=== PATIENT | female | born 1955 | race Two or more races ===

== ENCOUNTER → 2016-04-11 | Outpatient (CLI) | payer OTHER | LOC: RAD 07:47 | PROVIDERS: ATTEND Specialist | DX: R10.9 Unspecified abdominal pain (principal) | CPT/HCPCS: 78227; A9537; Q9969; J2805 ==

== ENCOUNTER 2016-04-19 12:41 | Outpatient (CLI) | payer SELFPAY ==
[~2016-04-19 12:41] MED LIST: FERRIC CARBOXYMALTOSE 750 MG in NORMAL SALINE 250 ML IV PRN; NORMAL SALINE 250 ML IV PRN
[2016-04-19 13:10] VITALS: BP 123/45
== END 2016-04-19 13:43 | disposition home or self-care (01) ==
LOC: II 12:41 → 5TH 13:03 → II 13:43
PROVIDERS: ATTEND Specialist
PROC: 3E033GC Introduction of Other Therapeutic Substance into Peripheral Vein, Percutaneous Approach (ICD-10-PCS; principal; 2016-04-19)
DX: C18.2 Malignant neoplasm of ascending colon (principal); Z51.11 Encounter for antineoplastic chemotherapy
CPT/HCPCS: 96365; J7050; J1439; 96367

== ENCOUNTER 2016-04-20 05:19 | Inpatient (IN) | payer OTHER ==
[2016-04-19 12:16] LABS: HEMATOCRIT 32.4 % (36.0-47.0); HEMOGLOBIN 9.7 g/dL (12.0-15.5); HGB HCT DIFFERENCE -3.3; MEAN CORPUSCULAR HEMOGLOBIN 21.1 pg (27.0-33.4); MEAN CORPUSCULAR HGB CONC 30.1 g/dL (32.0-36.0); MEAN CORPUSCULAR VOLUME 70 fl (80-97); RED BLOOD COUNT 4.61 10^6/uL (3.72-5.28); RED CELL DISTRIBUTION WIDTH 20.8 % (11.5-14.0); WHITE BLOOD COUNT 5.4 10^3/uL (4.0-10.5)
[~2016-04-20 05:19] MED LIST changes: +AMPICILLIN SODIUM/SULBACTAM NA 3 GM in NORMAL SALINE 100 ML IV PRN; -FERRIC CARBOXYMALTOSE 750 MG in NORMAL SALINE 250 ML IV PRN; +LACTATED RINGERS 1000 ML IV PRN; +LIDOCAINE 0.5% INJ-PF (5 MG/ML) 50 ML SDV SUBCUT PRN; -NORMAL SALINE 250 ML IV PRN
[2016-04-20] MEDS ORDERED: BUPIVACAINE HCL 0.25 % INJ/PF (2.5 MG/1 ML) 30 ML VIAL ONE (06:44)
[2016-04-20] MEDS ORDERED: BUPIVACAINE INJ/PF LIPOSOME/PF 266 MG/20 ML SDV ONE (06:44)
[2016-04-20] MEDS ORDERED: FENTANYL CITRATE INJ/PF 250 MCG/5 ML AMPULE ONE ×2 (07:10→10:33)
[2016-04-20] MEDS ORDERED: ACETAMINOPHEN 100 ML IV ONE (07:11)
[2016-04-20] MEDS ORDERED: MIDAZOLAM 2 MG/2 ML INJ ONE (07:11)
[2016-04-20] MEDS ORDERED: PROPOFOL INJ 200 MG/20 ML VIAL IV ONE (07:11)
[2016-04-20] MEDS ORDERED: HYDROMORPHONE HCL INJ/PF 2 MG/ML AMPULE ONE ×2 (07:11→10:33)
[2016-04-20] MEDS ORDERED: DEXMEDETOMIDINE INJ 80 MCG/20 ML VIAL IV ONE (07:11)
[2016-04-20] MEDS ORDERED: OXYCODONE-ACETAMINOPHEN 5-325 MG TABLET NG PRN ×2 (11:58)
[2016-04-20] MEDS ORDERED: DIPHENHYDRAMINE HCL 50 MG/ML VIAL IV PRN (11:58)
[2016-04-20] MEDS ORDERED: PROMETHAZINE HCL INJ 25 MG/1 ML VIAL IV PRN ×2 (11:58)
[2016-04-20] MEDS ORDERED: FENTANYL CITRATE INJ/PF 100 MCG/2 ML AMPUL IV PRN ×3 (11:58)
[2016-04-20] MEDS ORDERED: MEPERIDINE HCL/PF INJ 25 MG/1 ML DISP.SYRIN IV PRN (11:58)
[2016-04-20] MEDS ORDERED: MORPHINE SULFATE 10 MG/ML INJ IV PRN (11:58)
[2016-04-20] MEDS ORDERED: DEXTROSE 5%-LACTATED RINGERS 1,000 ML IV PRN (12:16)
[2016-04-20] MEDS ORDERED: ONDANSETRON HCL INJ/PF 4 MG/2 ML SDV IV PRN (12:16)
[2016-04-20] MEDS ORDERED: PHARMACY COMMUNICATION ORDER MC NR (12:30)
[2016-04-20] MEDS: FENTANYL CITRATE INJ/PF 100 MCG/2 ML AMPUL ONE ×3 (12:37→13:50)
--- NOTE | 2016-04-20 12:39 | Operative Report ---
Operative Report DATE OF SURGERY: 04/20/16 PREOPERATIVE DIAGNOSIS: 1. Right colon tumor, adenocarcinoma by biopsy. 2. Biliary dyskinesia. 3. Right adnexal mass POSTOPERATIVE DIAGNOSIS: Same with intrauterine abdominal adhesions, specifically FitzhughCurtis syndrome. Right ovarian cyst OPERATION: 1. Laparoscopic lysis of adhesions. 2. Right hemicolectomy, laparoscopic. 3. control of intra-abdominal bleeding. 4. Laparoscopic cholecystectomy SURGEON: EDYTA CHU CHILD WELFARE CASEWORKER: RAMY ALEJO ANESTHESIA: GA TISSUE REMOVED OR ALTERED: Right colon with mesentery; gallbladder COMPLICATIONS: None ESTIMATED BLOOD LOSS: 750 mL INTRAOPERATIVE FINDINGS: See below PROCEDURE: Patient was seen in the preoperative holding area where she was counseled on the planned procedure, laparoscopic, possible open right colectomy, with cholecystectomy. She agreed to the planned procedure as discussed. The patient taken to the operating room and general anesthesia was induced. The abdomen was exposed, arms tucked to the side and legs in the supine position. The abdomen was exposed prepped and draped in a sterile fashion with Coteuyjy-rklcykpx-ggmjto prep. Set up for laparoscopic right hemicolectomy. We approached the patient through a left upper quadrant stab wound with a knife , Veress needle inserted the peritoneal cavity, pneumoperitoneum was established. Veress needle was removed, 5 mm ports inserted and a 5 mm flexible scope was inserted. Under direct visualization 3 additional millimeter ports were placed one in the left lower quadrant, one the umbilicus and one in the midline suprapubic area. Visualization of the peritoneal cavity revealed a normal-appearing liver, and no evidence of carcinomatosis. There were adhesions between the right lobe of the liver and the undersurface of the right hemidiaphragm consistent with [place] syndrome. We as the patient in Trendelenburg position tilted the left, and performed adhesio lysis between the greater omentum and the right colon. This was done with your device. The findings are significant now for a large cecal tumor. The terminal ileum laparoscopically appeared normal. Once the right mesial colon was exposed, we opened it up with the energy device, and developed our plane in the retroperitoneum taking the level of dissection all the way to the duodenum and anterior to the duodenum. We also took the level dissection again in the retroperitoneum laterally. Graspers were repositioned, and an additional port was placed in the right lower quadrant. We now mobilized the ileocolic attachments to the lateral pelvic wall. Of note during the retroperitoneal dissection earlier, we visualized the right ureter and kept it out of harm's way. Attachments between the appendix and the lateral pelvic wall were taken down. We now opened up the white line of Toldt and took it up cephalad approximately half way to the hepatic flexure. There was a redundancy of the omentum in this area so we now approached the transverse colon. We opened up the gastrocolic omentum, and began taking the omentum off of the more proximal end of the transverse colon. The omental apron was divided to assist in this maneuver. We took down the hepatic flexure uneventfully all under direct, excellent visualization. We now had the right colon free laterally and superiorly. We went back up under the right mesial colon and continued the retroperitoneal dissection carefully again with great visualization and no bleeding and eventually had the entire colon freed up. We checked mobilization of the terminal ileum and a few further peritoneal attachments were opened up so as to mobilize terminal ileum. Her breath we didn 't effect inspect the pelvis on 2 occasions and appreciated the right adnexal mass which was a cyst involving the ovary, likely hemorrhagic. At this point we felt we were prepared to exteriorize the colon. Ports removed, and a midline incision was made from the supraumbilical port site cephalad. Incision was made approximately 11 cm in length, with fascia divided with electrocautery. The GelPort was put into position he now were able to exteriorize right colon. It came out nicely. We found suitable sites to divide both the terminal ileum and the transverse colon. The terminal ileum was divided approximately 8 cm proximal to the ileocecal valve and this was affected with the 55 RIVERA stapler, blue load. The transverse colon was divided just to right of the branch points of the middle colic vessels. The colon was divided with a second firing of the of the RIVERA stapler. We now scored the right meso colon for a high ideation of the vascular pedicles. Vascular Pedicles were taken between clamps and 0 Vicryl ties. During this maneuver , one of the pedicles likely the middle colic retracted into the cavity. The specimen was passed off the table, and we used hand-held pressure to stabilize the bleeding as a result. We did lose approximately 500 mL rapidly exposure anesthesia caught up using crystalloid. We utilized retractors for optimizing exposure and got some additional help in the operating room. The clamps placed on the proximal end of the pedicles were tied off with the 0 Vicryl sutures. I was now able to gain control the bleeding by placing a right angle clamp on a vein possibly the superior mesenteric vein, being careful not to occlude the vein. I now used a 4-0 Prolene suture to oversew the control bleeding site. The clamp was released and hemostasis again achieved. We reassessed the situation and found the patient to be stable again after a transient drop in blood pressure, which was treated with the crystalloid as mentioned above. The previously secured pedicles were felt in good condition. We proceeded with the operation. We brought the terminal ileum adjacent to the dissected transverse colon and effected our ilio transverse colonic anastomosis using combination of RIVERA 55 teresita and TA 60 stapler. We were careful to ensure that there was no rotation of the terminal ileum. The small bowel following the anastomosis was aligned to the right of the anastomosis. Placed to turn to the peritoneal cavity by placing a On the gel port. We checked for any mechanical bleeding and there was none. The viability of the terminal ileum and transverse colon were in excellent condition. There was never any question about the vascular status of the bowel lens during the anastomosis. At this point since the patient was stable and we proceeded with cholecystectomy. We changed the position of our graspers and scope, took down the adhesions over the liver with electrocautery and huyen. Grasper placed on the gallbladder fundus and infundibulum. The neck of the gallbladder was dissected out. The anatomy here was classic. Cystic artery and cystic duct were in their usual location were dissected out, photographed. Cystic duct was clipped twice proximally was distally divided. The cystic artery was similarly clipped twice proximally once distally and divided. The gallbladder was removed from the liver bed with hook cautery dissection and brought out of the patient through the GelPort. We leveled the patient out and checked for bleeding and there was none. We reinspected the anastomosis and it was in good condition. All ports removed, midline wound closed with 2 double-stranded #1 PDS suture, all incisions closed with 3-0 Vicryl, and teresita. 40 mL of dilute Exparel was injected into the subcutaneous tissues. Postop procedure was extubated and taken recovery in stable condition. The physician sound assistant, Ms. Alejo, provided assistance during this case by: Assisting and port insertion, retracting tissue, instillation of local anesthesia and closure of skin incisions.
[2016-04-20] MEDS ORDERED: PROMETHAZINE HCL INJ 25 MG/1 ML VIAL ONE (13:59)
[2016-04-20] MEDS ORDERED: NEOSTIGMINE METHYLSULFATE 10 MG/10 ML VIAL ONE (14:28)
[2016-04-20] MEDS ORDERED: LIDOCAINE 2% INJ-PF (20 MG/ML) 10 ML AMPUL ONE (14:28)
[2016-04-20] MEDS ORDERED: ROCURONIUM BROMIDE INJ 50 MG/5 ML VIAL IV ONE (14:28)
[2016-04-20] MEDS ORDERED: DEXAMETHASONE SOD PHOSPHATE INJ 4 MG/1 ML VIAL ONE (14:28)
[2016-04-20] MEDS ORDERED: GLYCOPYRROLATE INJ 0.4 MG/2 ML VIAL ONE (14:28)
[2016-04-20] MEDS ORDERED: PHENYLEPHRINE HCL INJ/PF 10 MG/1 ML SDV ONE (14:28)
[2016-04-20] MEDS ORDERED: ONDANSETRON HCL INJ/PF 4 MG/2 ML SDV ONE (14:28)
[2016-04-20] MEDS ORDERED: SUCCINYLCHOLINE CHLORIDE INJ 200 MG/10 ML VIAL ONE (14:28)
[2016-04-20] MEDS: MORPHINE SULFATE 10 MG/ML INJ IV PRN ×2 (16:51→21:10)
[2016-04-20] MEDS: AMPICILLIN SODIUM/SULBACTAM NA 3 GM in NORMAL SALINE 100 ML IV SCH ×2 (17:30→21:11)
[2016-04-20] MEDS: DEXTROSE 5%-LACTATED RINGERS 1,000 ML IV PRN (21:15)
[2016-04-21] MEDS: MORPHINE SULFATE 10 MG/ML INJ IV PRN ×5 (02:30→20:46)
[2016-04-21] MEDS: AMPICILLIN SODIUM/SULBACTAM NA 3 GM in NORMAL SALINE 100 ML IV SCH ×3 (05:23→21:14)
[2016-04-21] MEDS: DOCUSATE SODIUM 100 MG CAPSULE PO SCH ×2 (09:26→17:05)
[2016-04-22] MEDS: MORPHINE SULFATE 10 MG/ML INJ IV PRN ×6 (00:43→22:10)
[2016-04-22] MEDS: AMPICILLIN SODIUM/SULBACTAM NA 3 GM in NORMAL SALINE 100 ML IV SCH ×3 (05:43→21:59)
--- NOTE | 2016-04-22 09:29 | PROGRESS NOTE E ---
Progress Note NAME: KARLEY DRUMMOND : 1955 AGE: 60Y DATE: 04/22/2016 ROOM: 533 SUBJECTIVE: Patient has tolerated ice chips; she is voiding; no GI function yet. She does not have any nausea. OBJECTIVE: VITAL SIGNS: Stable; T-max 99.2. GENERAL: Patient looks good, healthy, and in no distress. ABDOMEN: Soft. Operative incision covered with original dressing. There is no abdominal distention, no tympany. Minimal tenderness. IMPRESSION: POSTOPERATIVE DAY 2, STATUS POST RIGHT HEMICOLECTOMY FOR A LARGE CECAL TUMOR. PLAN: Patient doing well, await resolution of ileus; will start clear liquids and advance slowly. Anticipate discharge in the next 24 to 48 hours. DICTATING PHYSICIAN: EDYTA BONILLA M.D. [id number] PHY#: [id number] ID: [id number] JOB#: [id number] ACCT: [id number] cc: >
[2016-04-22] MEDS: DOCUSATE SODIUM 100 MG CAPSULE PO SCH ×2 (09:40→17:31)
[2016-04-22] MEDS: DEXTROSE 5%-LACTATED RINGERS 1,000 ML IV PRN ×2 (11:47→22:43)
[2016-04-23] MEDS: MORPHINE SULFATE 10 MG/ML INJ IV PRN ×5 (02:15→20:34)
[2016-04-23] MEDS: AMPICILLIN SODIUM/SULBACTAM NA 3 GM in NORMAL SALINE 100 ML IV SCH ×3 (05:38→22:36)
--- NOTE | 2016-04-23 08:09 | PDOC PROGRESS REPORT ---
Subjective Progress Note for:: 04/23/16 Subjective:: Think she may have over done it yesterday. Tolerated liquids. No flatus. Voiding. Pain reasonably well controlled. Physical Exam Vital Signs: Temp Pulse Resp BP Pulse Ox 98.6 F 96 17 129/70 H 94 04/22/16 23:33 04/22/16 23:33 04/22/16 23:33 04/22/16 23:33 04/22/16 23:33 Intake & Output 04/22/16 04/23/16 04/24/16 06:59 06:59 06:59 Intake Total 3100 3689 Output Total 3600 3600 Balance -500 89 Weight 74.2 kg 74.2 kg General appearance: PRESENT: no acute distress GI/Abdominal exam: PRESENT: other - Abdomen not distended. Bowel sounds hypoactive. [place] intact on all incisions Results Laboratory Results: 04/19/16 11:09 Assessment & Plan - Diagnosis (1) Carcinoma of cecum Is this a current diagnosis for this admission?: YesPlan: 1. Patient is now 3 days postoperative right hemicolectomy and cholecystectomy. He is doing reasonably well, tolerating clear liquid diet, voiding, and ambulating. No flatus. No evidence of postoperative complications. Plan to keep on clear liquids today, manage pain accordingly; anticipate discharge home the next 24 hours. 2. Regarding iron deficiency anemia, we'll check CBC this morning. Patient may require another iron infusion. Currently she is asymptomatic. 3. Final path report came back showing poorly differentiated adenocarcinoma of the colon,T4a, with 10 out of 22 lymph nodes positive for metastatic disease, N2b. The gallbladder was unremarkable. I discussed the above with the patient. I explained her she will require adjuvant chemotherapy. Dr. Espinoza will see the patient this weekend and discuss management strategies with her. She will need an Dqncrw-j-Ehzn catheter and I mentioned that to the patient as well. 4. Dr. Lowry is personal security specialist this weekend and will see patient for me.
[2016-04-23 09:01] LABS: ABSOLUTE EOSINOPHILS # (AUTO) 0.1 10^3/uL (0.0-0.6); ABSOLUTE LYMPHOCYTES (AUTO) 1.5 10^3/uL (0.5-4.7); ABSOLUTE MONOCYTES (AUTO) 0.7 10^3/uL (0.1-1.4); ABSOLUTE NEUT (AUTO) 5.2 10^3/uL (1.7-8.2); BASOPHILS % (AUTO) 0.2 % (0-2); EOSINOPHILS % (AUTO) 1.8 % (0-6); HEMATOCRIT 24.9 % (36.0-47.0); HGB HCT DIFFERENCE -1.8; LYMPHOCYTES % (AUTO) 19.8 % (13-45); MEAN CORPUSCULAR HEMOGLOBIN 22.6 pg (27.0-33.4); MEAN CORPUSCULAR VOLUME 73 fl (80-97); MONOCYTES % (AUTO) 8.8 % (3-13); RED BLOOD COUNT 3.42 10^6/uL (3.72-5.28); RED CELL DISTRIBUTION WIDTH 24.6 % (11.5-14.0); SEGMENTED NEUTROPHILS % (AUTO) 69.4 % (42-78); WHITE BLOOD COUNT 7.5 10^3/uL (4.0-10.5)
[2016-04-23 09:18] LABS: ANISOCYTOSIS 2+; HYPOCHROMASIA 1+; MICROCYTOSIS 2+
[2016-04-23 09:19] LABS: POLYCHROMASIA SLIGHT
[2016-04-23 09:21] LABS: HEMOGLOBIN 7.7 g/dL (12.0-15.5)
[2016-04-23] MEDS: DOCUSATE SODIUM 100 MG CAPSULE PO SCH ×2 (09:30→17:11)
[2016-04-23] MEDS ORDERED: ACETAMINOPHEN 325 MG TABLET PO PRN (11:12)
[2016-04-23] MEDS ORDERED: FERRIC CARBOXYMALTOSE 750 MG in NORMAL SALINE 250 ML IV PRN (12:00)
--- NOTE | 2016-04-23 21:59 | PROGRESS NOTE E ---
Progress Note NAME: KARLEY DRUMMOND : 1955 AGE: 60Y DATE: 04/23/2016 ROOM: 533 SUBJECTIVE: The patient is without complaints at this time. She is tolerating a clear liquid diet well, but has not passed any flatus yet. OBJECTIVE: VITAL SIGNS: Blood pressure 136/77, temperature 98.8, pulse 89, respirations 17, saturation 97% on room air. ABDOMEN: The patient's abdomen is soft, bowel sounds are present. Incisions are clean, dry, and intact. She is nontender without guarding. The patient has not passed flatus yet. LABORATORY DATA: Her hemoglobin is now down to 7.7 and hematocrit 24.9, and the patient is being seen by her oncologist at this time for iron infusion. ASSESSMENT: Postoperative day #3 status post right hemicolectomy for stage III carcinoma of the colon and status post laparoscopic cholecystectomy for gallbladder dyskinesia concomitantly. PLAN: We will advance to a regular diet once the patient has passed flatus. DICTATING PHYSICIAN: STEFANY QUEZADA M.D. [id number] PHY#: [id number] ID: [id number] JOB#: [id number] ACCT: [id number] cc: >
--- NOTE | 2016-04-24 00:12 | PDOC CONSULTATION ---
Consultation Consult Date: 04/23/16 Consult reason:: Colon cancer History of Present Illness Admission Date/PCP: 04/20/16 05:19 History of Present Illness: KARLEY DRUMMOND is a 60 year old WG without any PMH who was recently seen in the ER for profound weakness and abdominal pain and noted to have microcytic anemia and a CT scan that reavealed a right sided colon cancer. She was seen in the office on last Monday and given an iron infusion pre- operatively and then underwent right hemicolectomy and appendectomy on Monday. She is currently on clear liquid diet but hasn't passed any flatus. Her path revealed a moderately to poorly differentiated adenocarcinoma through muscularis into the pericolonic fat with 10 + lymph nodes, angiolymphatic invasion and perineural invasion, negative margins. Her hgb is now 7.7 again. Past Medical History Cardiac Medical History: Reports: None Pulmonary Medical History: Neurological Medical History: Malignancy Medical History: Denies: Leukemia GI Medical History: Denies: Crohn's Disease, Gastroesophageal Reflux Disease, Hiatal Hernia Musculoskeltal Medical History: Hematology: Reports: Anemia Denies: Hemophilia, Sickle Cell Disease Infectious Medical History: Denies: HIV Past Surgical History Past Surgical History: Reports: Tonsillectomy Denies: Colostomy, Hysterectomy Social History Lives with: Spouse/Significant other Smoking Status: Never Smoker Frequency of Alcohol Use: None Hx Recreational Drug Use: No Drugs: None Hx Prescription Drug Abuse: No - Advance Directive Resuscitation Status: Full Code Family History Family History: Other - heart disease Parental Family History Reviewed: Yes Children Family History Reviewed: Yes Sibling(s) Family History Reviewed.: Yes Medication/Allergy Home Medications: Iron 18 mg PO DAILY 04/13/16 Multivitamin [Daily Multiple Vitamin] 1 each PO DAILY 04/13/16 Allergies/Adverse Reactions: No Known Allergies Allergy (Verified 04/15/16 10:29) Review of Systems Constitutional: PRESENT: weakness Gastrointestinal: PRESENT: abdominal pain Physical Exam Vital Signs: Temp Pulse Resp BP Pulse Ox 98.8 F 89 17 136/77 H 97 04/23/16 20:02 04/23/16 20:02 04/23/16 20:02 04/23/16 20:02 04/23/16 20:02 Intake & Output 04/22/16 04/23/16 04/24/16 06:59 06:59 06:59 Intake Total 3100 3689 1540 Output Total 3600 3600 1400 Balance -500 89 140 Weight 74.2 kg 74.2 kg General appearance: PRESENT: no acute distress Head exam: PRESENT: normocephalic Eye exam: PRESENT: conjunctiva pale, EOMI, PERRLA Ear exam: PRESENT: normal external ear exam Mouth exam: PRESENT: tongue midline Respiratory exam: PRESENT: clear to auscultation nikolas GI/Abdominal exam: PRESENT: normal bowel sounds, other - Surgical scar above the umbilicus and lap scars Neurological exam: PRESENT: alert, awake, oriented to person, oriented to place , oriented to time, oriented to situation, CN II-XII grossly intact Psychiatric exam: PRESENT: normal mood Results Laboratory Results: 04/23/16 08:38 04/23/16 08:38 WBC 7.5 RBC 3.42 L Hgb 7.7 L Hct 24.9 L MCV 73 L MCH 22.6 L MCHC 31.0 L RDW 24.6 H Plt Count 229 Seg Neutrophils % 69.4 Lymphocytes % 19.8 Monocytes % 8.8 Eosinophils % 1.8 Basophils % 0.2 Absolute Neutrophils 5.2 Absolute Lymphocytes 1.5 Absolute Monocytes 0.7 Absolute Eosinophils 0.1 Absolute Basophils 0.0 Assessment & Plan - Diagnosis (1) Carcinoma of cecum Is this a current diagnosis for this admission?: YesPlan: Discussed adjuvant chemotherapy with Folfox with need for portacath. We reviewed the risk and side effects and will arrange for follow up as an outpatient (2) Iron deficiency anemia Qualifiers: Iron deficiency anemia type: unspecified iron deficiency Qualified Code(s): D50.9 - Iron deficiency anemia, unspecified Plan: Will proceed with second dose of Iron as she wants to avoid a blood transfusion - Time Time Spent: 50 to 70 Minutes Critical Time spent with patient: 25-34 minutes Medications reviewed and adjusted accordingly: Yes Anticipated discharge: Home Within: within 36 hours - Inpatient Certification I certify that my determination is in accordance with my understanding of Medicare's requirements for reasonable and necessary INPATIENT services [42 CFR 412.3e].: Yes Medical Necessity: Risk of Complication if Not Cared For in Hospital
[2016-04-24] MEDS: MORPHINE SULFATE 10 MG/ML INJ IV PRN ×4 (02:01→15:25)
[2016-04-24] MEDS: DEXTROSE 5%-LACTATED RINGERS 1,000 ML IV PRN (03:42)
[2016-04-24] MEDS: AMPICILLIN SODIUM/SULBACTAM NA 3 GM in NORMAL SALINE 100 ML IV SCH ×3 (05:13→22:29)
[2016-04-24] MEDS: DOCUSATE SODIUM 100 MG CAPSULE PO SCH ×2 (09:28→17:08)
[2016-04-24] MEDS: OXYCODONE-ACETAMINOPHEN 5-325 MG TABLET PO PRN (18:46)
--- NOTE | 2016-04-24 20:03 | PROGRESS NOTE E ---
Progress Note NAME: KARLEY DRUMMOND : 1955 AGE: 60Y DATE: 04/24/2016 ROOM: 533 SUBJECTIVE: The patient is without complaints, feels as if she is ready to pass gas, has had no bowel movements or flatus passed as of yet, has minimal incisional pain. OBJECTIVE: VITAL SIGNS: Blood pressure 126/63. Temperature 98.2. Pulse 86. Respirations 20. Saturations 95%. LUNGS: The patient's lungs are clear. CARDIOVASCULAR SYSTEM: Pulse is regular. ABDOMEN: The abdomen is soft. Bowel sounds are present. Incision is clean, dry, intact with minimal incisional tenderness. DIAGNOSTIC DATA: The patient's hemoglobin went down to 7.7 and 24.9, and she has been receiving iron infusion. ASSESSMENT: PATIENT IS 4 DAYS STATUS POST LAPAROSCOPIC RIGHT HEMICOLECTOMY AND CHOLECYSTECTOMY. PLAN: The patient is on clear-liquid diet which is being tolerated well. When gas is passed, the patient will be advanced to a regular diet. DICTATING PHYSICIAN: STEFANY QUEZADA M.D. [id number] PHY#: [id number] ID: [id number] JOB#: [id number] ACCT: [id number] cc:STEFANY QUEZADA M.D. >
[2016-04-25] MEDS: OXYCODONE-ACETAMINOPHEN 5-325 MG TABLET PO PRN ×2 (05:41)
[2016-04-25] MEDS: AMPICILLIN SODIUM/SULBACTAM NA 3 GM in NORMAL SALINE 100 ML IV SCH (05:41)
[2016-04-25 09:22] VITALS: BP 113/64
[2016-04-25] MEDS: DOCUSATE SODIUM 100 MG CAPSULE PO SCH (09:23)
--- NOTE | 2016-04-25 11:58 | PDOC DISCHARGE SUMMARY ---
General - Admit/Disc Date/PCP Admission Date/Primary Care Provider: 04/20/16 05:19 Discharge Date: 04/25/16 - Discharge Diagnosis (1) Carcinoma of cecum Is this a current diagnosis for this admission?: Yes (2) Iron deficiency anemia Is this a current diagnosis for this admission?: Yes - Additional Information Resuscitation Status: Full Code Discharge Activity: Activity As Tolerated Home Medications: Iron 18 mg PO DAILY 04/13/16 Multivitamin [Daily Multiple Vitamin] 1 each PO DAILY 04/13/16 Oxycodone HCl/Acetaminophen [Percocet 5-325 mg Tablet] 1 tab PO ASDIR PRN #25 tab 04/25/16 History of Present Illness History of Present Illness: KARLEY DRUMMOND is a 60 year old female Hospital Course Hospital Course: The patient is 60 white female with recent diagnosis of large right cecal carcinoma moderate to poorly differentiated adenocarcinoma. She is brought to same day surgery to the operating room where she underwent right laparoscopic hemicolectomy by Dr. Chin. Postoperatively she did well , did require an iron transfusion, tolerated her diet with gentle advancement. Her incisions healed satisfactorily. She was seen by Dr. Espinoza, exercise specialist, because of her stage III diagnosis, she was told she will receive chemotherapy postoperatively. On the fourth postoperative day she was ready for discharge. Physical Exam Vital Signs: Temp Pulse Resp BP Pulse Ox 98 F 73 16 113/64 98 04/25/16 11:08 04/25/16 11:08 04/25/16 11:08 04/25/16 11:08 04/25/16 11:08 Intake & Output 04/24/16 04/25/16 04/26/16 06:59 06:59 06:59 Intake Total 3680 2545 Output Total 4100 1850 Balance -420 695 Weight 74.2 kg 74 kg Results Laboratory Results: 04/23/16 08:38 Qualifiers PATEINT BEING DISCHARGED WITH ANY OF THE FOLLOWING DIAGNOSIS?: No Plan Discharge Plan: Patient's pathologic diagnosis is T4, N2,M0 adenocarcinoma of the cecum. She will be discharged home in care of her family, follow-up Dr. Chin approximately one week for staple removal. She's been given Percocet when necessary pain is been instructed on taking a stool softener. She understands she will require Nppqhx-m-Rnwe catheter placement for initiation of adjuvant chemotherapy under the direction of Dr. Mayra Espinoza. Time Spent: Greater than 30 Minutes
== END 2016-04-25 12:40 | disposition home or self-care (01) | DRG 330 ==
LOC: INOR 05:19 → 5 15:00
PROVIDERS: ADMIT Surgery; ATTEND Surgery
PROC: 0FT44ZZ Resection of Gallbladder, Percutaneous Endoscopic Approach (ICD-10-PCS; 2016-04-20)
PROC: 0DNS4ZZ (ICD-10-PCS; 2016-04-20)
PROC: 0DTF4ZZ Resection of Right Large Intestine, Percutaneous Endoscopic Approach (ICD-10-PCS; principal; 2016-04-20 07:30)
DX: C18.0 Malignant neoplasm of cecum (principal); C77.2 Secondary and unspecified malignant neoplasm of intra-abdominal lymph nodes; K66.0 Peritoneal adhesions (postprocedural) (postinfection); D50.0 Iron deficiency anemia secondary to blood loss (chronic); K82.8 Other specified diseases of gallbladder; N83.201 Unspecified ovarian cyst, right side; Z79.899 Other long term (current) drug therapy; Z82.49 Family history of ischemic heart disease and other diseases of the circulatory system
CPT/HCPCS: 36415; 790; 85025; 85027; 86850; 86900; 86901; 88304; 88309; 94799; 88329; C9290; J0131; J0295; J0330; J1100; J1170; J1439; J2250; J2270; J2370; J2405; J2550; J2704; J3010; J3490; J7050

== ENCOUNTER 2016-05-12 06:09 | Day surgery (SDC) | payer SELFPAY ==
[~2016-05-12 06:09] MED LIST changes: +ACETAMINOPHEN 325 MG TABLET PO PRN; -AMPICILLIN SODIUM/SULBACTAM NA 3 GM in NORMAL SALINE 100 ML IV PRN; +CEFAZOLIN SODIUM 1 GM in DEXTROSE 5%-WATER 50 ML IV PRN; -LACTATED RINGERS 1000 ML IV PRN; -LIDOCAINE 0.5% INJ-PF (5 MG/ML) 50 ML SDV SUBCUT PRN; +NORMAL SALINE 1000 ML 1,000 ML IV PRN
[2016-05-12 07:09] LABS: HEMATOCRIT 35.3 % (36.0-47.0); HEMOGLOBIN 11.3 g/dL (12.0-15.5); HGB HCT DIFFERENCE -1.4; MEAN CORPUSCULAR HEMOGLOBIN 26.4 pg (27.0-33.4); MEAN CORPUSCULAR HGB CONC 32.1 g/dL (32.0-36.0); RED BLOOD COUNT 4.29 10^6/uL (3.72-5.28); RED CELL DISTRIBUTION WIDTH 29.4 % (11.5-14.0)
[2016-05-12 07:45] LABS: MEAN CORPUSCULAR VOLUME 82 fl (80-97)
[2016-05-12 07:50] LABS: ANISOCYTOSIS 4+; BAND NEUTROPHILS % (MANUAL) 1 % (3-5); BASOPHILS % (MANUAL) 1 % (0-2); EOSINOPHILS % (MANUAL) 2 % (0-6); LYMPHOCYTES % (MANUAL) 41 % (13-45); OVALOCYTES 1+; POIKILOCYTOSIS 1+; POLYCHROMASIA SLIGHT; ROULEAUX 1+; TOTAL CELLS COUNTED 100
[2016-05-12] MEDS ORDERED: BACITRACIN INJ 50,000 UNIT VIAL IR PRN (08:00)
[2016-05-12] MEDS ORDERED: FENTANYL CITRATE INJ/PF 100 MCG/2 ML AMPUL ONE (08:00)
[2016-05-12] MEDS ORDERED: MIDAZOLAM 2 MG/2 ML INJ ONE ×2 (08:00→08:55)
[2016-05-12] MEDS ORDERED: LIDOCAINE 0.5% INJ-PF (5 MG/ML) 50 ML SDV ONE (08:12)
[2016-05-12] MEDS ORDERED: OXYCODONE-ACETAMINOPHEN 5-325 MG TABLET PO PRN (09:54)
--- NOTE | 2016-05-12 09:54 | Operative Report ---
Operative Report DATE OF SURGERY: 05/12/16 PREOPERATIVE DIAGNOSIS: Stage III colon cancer POSTOPERATIVE DIAGNOSIS: Same OPERATION: 1. Focused ultrasound of the right neck. 2. Ultrasound directed insertion of right internal jugular dual-lumen Port-A-Cath. 3. Interpretation of intraoperative fluoroscopy SURGEON: EDYTA BONILLA ANESTHESIA: Moderate Sedation TISSUE REMOVED OR ALTERED: None COMPLICATIONS: None ESTIMATED BLOOD LOSS: scant INTRAOPERATIVE FINDINGS: See below PROCEDURE: Patient was taken to the catheterization lab placed supine arms tucked right neck exposed. Right neck and chest wall were prepped and draped sterile fashion. Surgical plan surgical timeout were conducted The right neck was scanned with variable frequency transducer. Right internal jugular vein felt suitable for cannulation. Skin anesthetized with 1% lidocaine without epinephrine. Microneedle and wire threaded into the right internal jugular vein without difficulty. A suitable site for placement of port was chosen in the right subclavian position. Skin anesthetized with local anesthetic, 3 cm incision was made with the 15 blade, and a pocket developed with electrocautery to accommodate the single-chamber port. Catheter was then trimmed the appropriate length tunneled between the 2 wounds attached to the port and the plastic ring secured port chamber. The port was tucked into the pocket microneedle and wire which over to micro-catheter then a 0.035 wire threaded into the micro-catheter. We then dilated up the tract under fluoroscopic guidance, and then using the strip away sheath, threaded the single lumen catheter into the right internal jugular vein all under fluoroscopic guidance. There was excellent aspiration and flush of the chamber. There was no kinking of the catheter and no ectopy. Total fluoroscopy time 0.1 minutes exposure 1 mckeon per centimeter squared Wounds closed with 3-0 Vicryl 4-0 Monocryl benzoin and Steri-Strips. Patient stopped procedure well.
--- NOTE | 2016-05-12 09:55 | PDOC DISCHARGE SUMMARY ---
Discharge Summary (SDC) - Discharge Final Diagnosis: Metastatic colon cancer Date of Surgery: 05/12/16 Discharge Date: 05/12/16 Condition: Good Treatment or Instructions: Patient may use catheter in 48 hours. She'll take Percocet as needed for Pain. She may shower in 72 hours. She'll follow-up Dr. Chin and also surgical clinic in 1-2 weeks. Discharge Diet: As Tolerated Discharge Activity: Activity As Tolerated, No Lifting Over 10 Pounds, No Lifting /Push/Pulling Home Care Assistance: None Needed Report the Following to Your Physician Immediately: Shortness of Breath, Increase in Pain, Fever over 101 Degrees
[2016-05-12 11:50] VITALS: BP 124/81
== END 2016-05-12 11:30 | disposition home or self-care (01) ==
LOC: CCL 06:09
PROVIDERS: ATTEND Surgery
PROC: 05HM33Z Insertion of Infusion Device into Right Internal Jugular Vein, Percutaneous Approach (ICD-10-PCS; principal; 2016-05-12)
DX: C18.9 Malignant neoplasm of colon, unspecified (principal); R97.0 Elevated carcinoembryonic antigen [CEA]; D50.9 Iron deficiency anemia, unspecified
CPT/HCPCS: 36415; 85025; 36561; 76937; 77001; C1752; J2250; J3490 ×2; J0690; J3010; J1644

== ENCOUNTER 2016-05-17 08:22 | Outpatient (CLI) | payer OTHER ==
[~2016-05-17 08:22] MED LIST changes: -ACETAMINOPHEN 325 MG TABLET PO PRN; -CEFAZOLIN SODIUM 1 GM in DEXTROSE 5%-WATER 50 ML IV PRN; +CONTAINER EMPTY IV PRN; +DEXTROSE 5% IV PRN; +DEXTROSE 5%-WATER 250 ML IV PRN; +DISPOSABLE IV PRN; +FLUOROURACIL IV PRN; +LEUCOVORIN CALCIUM IV PRN; -NORMAL SALINE 1000 ML 1,000 ML IV PRN; +ONDANSETRON HCL/PF 16 MG, DEXAMETHASONE SOD PHOSPHATE 10 MG in NORMAL SALINE 50 ML IV PRN; +OXALIPLATIN 150 MG in DEXTROSE 5%-WATER 250 ML IV PRN; +WATER IV PRN
[2016-05-17 09:12] VITALS: BP 122/82
[2016-05-17 09:24] LABS: ABSOLUTE EOSINOPHILS # (AUTO) 0.1 10^3/uL (0.0-0.6); ABSOLUTE LYMPHOCYTES (AUTO) 1.5 10^3/uL (0.5-4.7); ABSOLUTE MONOCYTES (AUTO) 0.6 10^3/uL (0.1-1.4); ABSOLUTE NEUT (AUTO) 2.9 10^3/uL (1.7-8.2); BASOPHILS % (AUTO) 0.9 % (0-2); EOSINOPHILS % (AUTO) 2.1 % (0-6); HEMATOCRIT 38.8 % (36.0-47.0); HEMOGLOBIN 12.4 g/dL (12.0-15.5); HGB HCT DIFFERENCE -1.6; LYMPHOCYTES % (AUTO) 29.8 % (13-45); MEAN CORPUSCULAR HEMOGLOBIN 26.6 pg (27.0-33.4); MEAN CORPUSCULAR HGB CONC 31.9 g/dL (32.0-36.0); MEAN CORPUSCULAR VOLUME 84 fl (80-97); MONOCYTES % (AUTO) 11.2 % (3-13); RED BLOOD COUNT 4.64 10^6/uL (3.72-5.28); RED CELL DISTRIBUTION WIDTH 27.8 % (11.5-14.0); WHITE BLOOD COUNT 5.1 10^3/uL (4.0-10.5)
[2016-05-17 09:52] LABS: ANISOCYTOSIS 3+; OVALOCYTES 2+; POIKILOCYTOSIS 2+
== END 2016-05-17 13:30 | disposition home or self-care (01) ==
LOC: II 08:22 → 5TH 08:23 → II 13:30
PROVIDERS: ATTEND Specialist
DX: Z51.11 Encounter for antineoplastic chemotherapy (principal); C18.2 Malignant neoplasm of ascending colon
CPT/HCPCS: 96413; 96415; 96416; 96367; 96375; 96417; 36415; 85025; A4222; J3490 ×3; J9190; J2405; J7060; J1100; J9263

== ENCOUNTER 2016-05-31 09:01 | Outpatient (CLI) | payer MEDICAID, OTHER ==
[~2016-05-31 09:01] MED LIST changes: -OXALIPLATIN 150 MG in DEXTROSE 5%-WATER 250 ML IV PRN
[2016-05-31 09:23] LABS: ABSOLUTE EOSINOPHILS # (AUTO) 0.1 10^3/uL (0.0-0.6); ABSOLUTE LYMPHOCYTES (AUTO) 1.6 10^3/uL (0.5-4.7); ABSOLUTE MONOCYTES (AUTO) 0.7 10^3/uL (0.1-1.4); ABSOLUTE NEUT (AUTO) 2.3 10^3/uL (1.7-8.2); BASOPHILS % (AUTO) 0.9 % (0-2); EOSINOPHILS % (AUTO) 2.9 % (0-6); HEMATOCRIT 38.7 % (36.0-47.0); HEMOGLOBIN 12.8 g/dL (12.0-15.5); HGB HCT DIFFERENCE -0.3; LYMPHOCYTES % (AUTO) 33.3 % (13-45); MEAN CORPUSCULAR HGB CONC 33.2 g/dL (32.0-36.0); MEAN CORPUSCULAR VOLUME 84 fl (80-97); MONOCYTES % (AUTO) 14.2 % (3-13); RED BLOOD COUNT 4.59 10^6/uL (3.72-5.28); RED CELL DISTRIBUTION WIDTH 26.4 % (11.5-14.0); SEGMENTED NEUTROPHILS % (AUTO) 48.7 % (42-78); WHITE BLOOD COUNT 4.7 10^3/uL (4.0-10.5)
[2016-05-31 09:50] LABS: ANISOCYTOSIS 3+; OVALOCYTES 1+; POIKILOCYTOSIS 1+
[2016-05-31 10:08] VITALS: BP 125/73
[2016-05-31] MEDS: OXALIPLATIN 150 MG in DEXTROSE 5%-WATER 250 ML IV PRN ×2 (12:06→12:14)
== END 2016-05-31 15:06 | disposition home or self-care (01) ==
LOC: II 09:01 → 5TH 09:12 → II 15:06
PROVIDERS: ATTEND Specialist
PROC: 3E04305 Introduction of Other Antineoplastic into Central Vein, Percutaneous Approach (ICD-10-PCS; principal; 2016-05-31)
PROC: 3E04305 Introduction of Other Antineoplastic into Central Vein, Percutaneous Approach (ICD-10-PCS; 2016-05-31)
PROC: 3E04305 Introduction of Other Antineoplastic into Central Vein, Percutaneous Approach (ICD-10-PCS; 2016-05-31)
PROC: 3E04305 Introduction of Other Antineoplastic into Central Vein, Percutaneous Approach (ICD-10-PCS; 2016-05-31)
PROC: 3E043GC Introduction of Other Therapeutic Substance into Central Vein, Percutaneous Approach (ICD-10-PCS; 2016-05-31)
PROC: 3E043GC Introduction of Other Therapeutic Substance into Central Vein, Percutaneous Approach (ICD-10-PCS; 2016-05-31)
PROC: 3E0437Z Introduction of Electrolytic and Water Balance Substance into Central Vein, Percutaneous Approach (ICD-10-PCS; 2016-05-31)
DX: C18.2 Malignant neoplasm of ascending colon (principal); Z51.11 Encounter for antineoplastic chemotherapy
CPT/HCPCS: 96409; 96413; 96415; 96416; 96367; 96368; 96361; 36415; 85025; J0640; J3490 ×2; J9190; J2405; J7060; J1100; J9263; 96375; 96417

== ENCOUNTER 2016-06-28 08:09 | Outpatient (CLI) | payer SELFPAY ==
[~2016-06-28 08:09] MED LIST changes: -DEXTROSE 5%-WATER 250 ML IV PRN; +OXALIPLATIN IV PRN
[2016-06-28 08:48] LABS: HEMATOCRIT 40.6 % (36.0-47.0); HEMOGLOBIN 13.8 g/dL (12.0-15.5); HGB HCT DIFFERENCE 0.8; MEAN CORPUSCULAR HEMOGLOBIN 29.8 pg (27.0-33.4); MEAN CORPUSCULAR HGB CONC 34.1 g/dL (32.0-36.0); RED BLOOD COUNT 4.64 10^6/uL (3.72-5.28); RED CELL DISTRIBUTION WIDTH 24.1 % (11.5-14.0); WHITE BLOOD COUNT 6.3 10^3/uL (4.0-10.5)
[2016-06-28 09:17] VITALS: BP 145/89
[2016-06-28 09:37] LABS: MEAN CORPUSCULAR VOLUME 88 fl (80-97)
[2016-06-28] MEDS: DEXTROSE 5%-WATER 250 ML IV PRN ×2 (10:10→11:32)
[2016-06-28 10:47] LABS: BASOPHILS % (MANUAL) 0 % (0-2); EOSINOPHILS % (MANUAL) 5 % (0-6); LYMPHOCYTES % (MANUAL) 39 % (13-45); TOTAL CELLS COUNTED 100
[2016-06-28 10:49] LABS: ANISOCYTOSIS 3+; OVALOCYTES SLIGHT; POIKILOCYTOSIS SLIGHT
[2016-06-28 10:50] LABS: SCHISTOCYTES SLIGHT
== END 2016-06-28 13:52 | disposition home or self-care (01) ==
LOC: II 08:09 → 5TH 08:53 → II 13:52
PROVIDERS: ATTEND Specialist
PROC: 3E04305 Introduction of Other Antineoplastic into Central Vein, Percutaneous Approach (ICD-10-PCS; principal; 2016-06-28)
PROC: 3E0430M Introduction of Antineoplastic, Monoclonal Antibody, into Central Vein, Percutaneous Approach (ICD-10-PCS; 2016-06-28)
PROC: 3E043GC Introduction of Other Therapeutic Substance into Central Vein, Percutaneous Approach (ICD-10-PCS; 2016-06-28)
DX: C18.2 Malignant neoplasm of ascending colon (principal); Z51.11 Encounter for antineoplastic chemotherapy
CPT/HCPCS: 96411; 96413; 96415; 96416; 96367; 96368; 36415; 85025; J0640; J3490 ×2; J9190; J2405; J7060; J1100; J9263; 96360; 96366; 96374; 96409; 96417

== ENCOUNTER 2016-07-12 11:53 | Outpatient (CLI) | payer SELFPAY ==
[~2016-07-12 11:53] MED LIST changes: +DEXTROSE 5%-WATER 250 ML IV PRN; +FERRIC CARBOXYMALTOSE 750 MG in NORMAL SALINE 250 ML IV PRN; +NORMAL SALINE 10 ML SDV (AFTER EACH USE) IV PRN; +NORMAL SALINE 250 ML IV PRN; +OXALIPLATIN 150 MG in DEXTROSE 5%-WATER 250 ML IV PRN
[2016-07-12] MEDS: DEXTROSE 5%-WATER 250 ML IV PRN ×2 (12:46→13:32)
[2016-07-12 13:07] VITALS: BP 142/94
== END 2016-07-12 16:13 | disposition home or self-care (01) ==
LOC: II 11:53 → 5TH 11:54 → II 16:13
PROVIDERS: ATTEND Specialist
PROC: 3E04305 Introduction of Other Antineoplastic into Central Vein, Percutaneous Approach (ICD-10-PCS; principal; 2016-07-12)
PROC: 3E04305 Introduction of Other Antineoplastic into Central Vein, Percutaneous Approach (ICD-10-PCS; 2016-07-12)
PROC: 3E04305 Introduction of Other Antineoplastic into Central Vein, Percutaneous Approach (ICD-10-PCS; 2016-07-12)
PROC: 3E0437Z Introduction of Electrolytic and Water Balance Substance into Central Vein, Percutaneous Approach (ICD-10-PCS; 2016-07-12)
PROC: 3E043GC Introduction of Other Therapeutic Substance into Central Vein, Percutaneous Approach (ICD-10-PCS; 2016-07-12)
PROC: 3E043GC Introduction of Other Therapeutic Substance into Central Vein, Percutaneous Approach (ICD-10-PCS; 2016-07-12)
DX: C18.2 Malignant neoplasm of ascending colon (principal); Z51.11 Encounter for antineoplastic chemotherapy
CPT/HCPCS: 96411; 96413; 96415; 96416; 96367; 96368; 96361; J0640; J3490 ×2; J9190; J2405; J7060; J1100; J9263; 96375; 96409; 96417; J1439; J7050

== ENCOUNTER 2016-07-26 08:27 | Outpatient (CLI) | payer SELFPAY ==
[~2016-07-26 08:27] MED LIST changes: -FERRIC CARBOXYMALTOSE 750 MG in NORMAL SALINE 250 ML IV PRN; -NORMAL SALINE 250 ML IV PRN; -OXALIPLATIN 150 MG in DEXTROSE 5%-WATER 250 ML IV PRN
[2016-07-26 10:02] VITALS: BP 111/52
[2016-07-26 10:04] LABS: ABSOLUTE BASOPHILS # (AUTO) 0.1 10^3/uL (0.0-0.2); ABSOLUTE EOSINOPHILS # (AUTO) 0.1 10^3/uL (0.0-0.6); ABSOLUTE LYMPHOCYTES (AUTO) 1.5 10^3/uL (0.5-4.7); ABSOLUTE MONOCYTES (AUTO) 1.2 10^3/uL (0.1-1.4); ABSOLUTE NEUT (AUTO) 4.1 10^3/uL (1.7-8.2); BASOPHILS % (AUTO) 0.7 % (0-2); EOSINOPHILS % (AUTO) 1.2 % (0-6); HEMATOCRIT 39.6 % (36.0-47.0); HEMOGLOBIN 13.5 g/dL (12.0-15.5); HGB HCT DIFFERENCE 0.9; LYMPHOCYTES % (AUTO) 21.3 % (13-45); MEAN CORPUSCULAR HEMOGLOBIN 31.3 pg (27.0-33.4); MONOCYTES % (AUTO) 17.3 % (3-13); RED BLOOD COUNT 4.31 10^6/uL (3.72-5.28); RED CELL DISTRIBUTION WIDTH 19.5 % (11.5-14.0); SEGMENTED NEUTROPHILS % (AUTO) 59.5 % (42-78); WHITE BLOOD COUNT 6.8 10^3/uL (4.0-10.5)
[2016-07-26 10:16] LABS: MEAN CORPUSCULAR VOLUME 92 fl (80-97)
[2016-07-26 10:27] LABS: ANISOCYTOSIS 2+
[2016-07-26 13:10] LABS: APPEARANCE,URINE CLEAR; BILIRUBIN,URINE NEGATIVE (NEGATIVE); GLUCOSE, URINE NEGATIVE (NEGATIVE); KETONES,URINE NEGATIVE (NEGATIVE); LEUKOCYTE ESTERASE,URINE TRACE (NEGATIVE); NITRITE,URINE NEGATIVE (NEGATIVE); PROTEIN,URINE NEGATIVE (NEGATIVE); URINE SPECIFIC GRAVITY 1.009; UROBILINOGEN,URINE NEGATIVE mg/dL (<2.0)
== END 2016-07-26 12:47 | disposition home or self-care (01) ==
LOC: II 08:27 → 5TH 08:30 → II 12:47
PROVIDERS: ATTEND Specialist
PROC: 3E043GC Introduction of Other Therapeutic Substance into Central Vein, Percutaneous Approach (ICD-10-PCS; principal; 2016-07-26)
DX: Z51.11 Encounter for antineoplastic chemotherapy (principal); C18.2 Malignant neoplasm of ascending colon; Z53.8 Procedure and treatment not carried out for other reasons
CPT/HCPCS: 96365; 36415; 87086; 85025; 87088; 81001; 87186; J2405; J1100; J0640; J3490; J7060; J9190; J9263

== ENCOUNTER 2016-08-09 07:53 | Outpatient (CLI) | payer MEDICAID ==
[2016-08-09 08:48] VITALS: BP 135/96
[2016-08-09 09:41] LABS: ABSOLUTE BASOPHILS # (AUTO) 0.1 10^3/uL (0.0-0.2); ABSOLUTE EOSINOPHILS # (AUTO) 0.1 10^3/uL (0.0-0.6); ABSOLUTE LYMPHOCYTES (AUTO) 1.7 10^3/uL (0.5-4.7); ABSOLUTE MONOCYTES (AUTO) 0.8 10^3/uL (0.1-1.4); ABSOLUTE NEUT (AUTO) 3.9 10^3/uL (1.7-8.2); BASOPHILS % (AUTO) 0.8 % (0-2); EOSINOPHILS % (AUTO) 1.3 % (0-6); HEMOGLOBIN 13.6 g/dL (12.0-15.5); HGB HCT DIFFERENCE 0.8; LYMPHOCYTES % (AUTO) 26.4 % (13-45); MEAN CORPUSCULAR HEMOGLOBIN 32.5 pg (27.0-33.4); MEAN CORPUSCULAR HGB CONC 34.1 g/dL (32.0-36.0); MEAN CORPUSCULAR VOLUME 95 fl (80-97); MONOCYTES % (AUTO) 12.6 % (3-13); RED BLOOD COUNT 4.19 10^6/uL (3.72-5.28); RED CELL DISTRIBUTION WIDTH 18.1 % (11.5-14.0); SEGMENTED NEUTROPHILS % (AUTO) 58.9 % (42-78); WHITE BLOOD COUNT 6.6 10^3/uL (4.0-10.5)
== END 2016-08-09 13:15 | disposition home or self-care (01) ==
LOC: II 07:53 → 5TH 07:57 → II 13:15
PROVIDERS: ATTEND Specialist
PROC: 3E04305 Introduction of Other Antineoplastic into Central Vein, Percutaneous Approach (ICD-10-PCS; principal; 2016-08-09)
PROC: 3E043GC Introduction of Other Therapeutic Substance into Central Vein, Percutaneous Approach (ICD-10-PCS; 2016-08-09)
DX: Z51.11 Encounter for antineoplastic chemotherapy (principal); C18.2 Malignant neoplasm of ascending colon
CPT/HCPCS: 96411; 96413; 96415; 96416; 96368; 96375; 96417; 36415; 85025; J0640; J3490 ×2; J9190; J2405; J7060; J1100; J9263; 96367; 96409

== ENCOUNTER → 2017-02-20 | Outpatient (CLI) | payer MEDICAID ==
--- NOTE | 2017-02-20 10:26 | RADIOLOGY REPORT (SQ) ---
EXAM DESCRIPTION: CT CHEST WITH COMPLETED DATE/TIME: 02/20/2017 8:47 am REASON FOR STUDY: COLON CA C18.2 MALIGNANT NEOPLASM OF ASCENDING COLON COMPARISON: None. TECHNIQUE: CT scan of the chest performed using helical scanning technique with dynamic intravenous contrast injection. Images reviewed with lung, soft tissue and bone windows. Reconstructed coronal and sagittal MPR images reviewed. All images stored on PACS. All CT scanners at this facility use dose modulation, iterative reconstruction, and/or weight based d osing when appropriate to reduce radiation dose to as low as reasonably achievable (ALARA). [facility]: Dose Right [facility]: CareDose [facility]: Dose Right [facility]: Teradose 4D [facility]: [employer] CONTRAST TYPE AND DOSE: 76 cc Isovue 370- low osmolar. RENAL FUNCTION: Creatinine 0.7 RADIATION DOSE: Total exam DLP: 793 mGy cm. LIMITATIONS: None. FINDINGS: LUNGS AND PLEURA: A few small peripheral blebs are present. There is no infiltrate. Ther e is no pleural effusion. There is no mass. HILAR AND MEDIASTINAL STRUCTURES: No identified masses or abnormal nodes. HEART AND VASCULAR STRUCTURES: No aneurysm or dissection. No central pulmonary emboli. No pericardi al effusion. HARDWARE: None in the chest. UPPER ABDOMEN: See separate report of the CT of the abdomen. THYROID AND OTHER SOFT TISSUES: No masses. No adenopathy. BONES: No significant abnormality. OTHER: No other significant finding. IMPRESSION: The study is normal except for the presence of a few small peripheral blebs. No metasta tic disease is seen in the chest. TECHNICAL DOCUMENTATION: JOB ID: [id number] Quality ID # [id number]: Final reports with documentation of one or more dose reduction techniques (e.g., Au tomated exposure control, adjustment of the mA and/or kV according to patient size, use of iterative reconstruction technique) 2010 [employer]- All Rights Reserved
--- NOTE | 2017-02-20 10:39 | RADIOLOGY REPORT (SQ) ---
EXAM DESCRIPTION: CT ABD/PELVIS WITH IV ORAL COMPLETED DATE/TIME: 02/20/2017 8:47 am REASON FOR STUDY: COLON CA C18.2 MALIGNANT NEOPLASM OF ASCENDING COLON COMPARISON: 04/15/2016 TECHNIQUE: CT scan of the abdomen and pelvis performed using helical scanning technique with dynamic intravenous contrast injection. Oral contrast. Images reviewed with lung, soft tissue, and bone win dows. Reconstructed coronal and sagittal MPR images reviewed. Delayed images for evaluation of the ur inary system also acquired. All images stored on PACS. All CT scanners at this facility use dose modulation, iterative reconstruction, and/or weight based d osing when appropriate to reduce radiation dose to as low as reasonably achievable (ALARA). [facility]: Dose Right [facility]: CareDose [facility]: Dose Right [facility]: Teradose 4D [facility]: [employer] CONTRAST TYPE AND DOSE: contrast/concentration: Isovue 370.00 mg/ml; Total Contrast Delivered: 76.0 ml; Total Saline Delivered: 64.0 ml RENAL FUNCTION: Creatinine 0.7 RADIATION DOSE: Up-to-date CT equipment and radiation dose reduction techniques were employed. CTDIv ol: 4.6 - 5.8 mGy. DLP: 793 mGy-cm.. LIMITATIONS: None. FINDINGS: LOWER CHEST: See separate report of the CT of the chest. LIVER: Normal size. No masses. No dilated ducts. SPLEEN: Normal size. No focal lesions. PANCREAS: No masses. No significant calcifications. No adjacent inflammation or peripancreatic fluid collections. Pancreatic duct not dilated. GALLBLADDER: Surgically absent. ADRENAL GLANDS: No significant masses or asymmetry. RIGHT KIDNEY AND URETER: No solid masses. No significant calcifications. No hydronephrosis or hyd roureter. LEFT KIDNEY AND URETER: No solid masses. No significant calcifications. No hydronephrosis or hydr oureter. AORTA AND VESSELS: No aneurysm. No dissection. Renal arteries, SMA, celiac without stenosis. RETROPERITONEUM: No retroperitoneal adenopathy, hemorrhage or masses. BOWEL AND PERITONEAL CAVITY: The right colon has been resected. APPENDIX: Surgically absent. PELVIS: There is a 4.8 cm right adnexal cyst. This is stable. ABDOMINAL WALL: No masses. No hernias. BONES: Mild scoliosis no osseous lesions OTHER: No other significant finding. IMPRESSION: 1. No abdominal or pelvic or osseous metastases. 2. 4.8 cm right ovarian cyst. Consider ultrasound follow-up in 6 to 12 months. TECHNICAL DOCUMENTATION: JOB ID: [id number] Quality ID # [id number]: Final reports with documentation of one or more dose reduction techniques (e.g., Au tomated exposure control, adjustment of the mA and/or kV according to patient size, use of iterative reconstruction technique) 2010 [employer]- All Rights Reserved
== END ==
LOC: RAD 07:56
PROVIDERS: ATTEND Physician Assistant
DX: C18.2 Malignant neoplasm of ascending colon (principal)
CPT/HCPCS: 71260; 74177; 82565

== ENCOUNTER → 2017-06-29 | Outpatient (CLI) | payer MEDICAID | LOC: OD 16:17 | PROVIDERS: ATTEND Physician Assistant Surgical | DX: Z85.038 Personal history of other malignant neoplasm of large intestine (principal) | CPT/HCPCS: 36415; 82378 ==

== ENCOUNTER → 2017-07-25 | Outpatient (CLI) | payer MEDICAID ==
--- NOTE | 2017-07-25 09:09 | RADIOLOGY REPORT (SQ) ---
EXAM DESCRIPTION: CT ABD/PELVIS WITH IV ORAL COMPLETED DATE/TIME: 07/25/2017 8:19 am REASON FOR STUDY: RLQ PAIN/NAUSEA/PERSONAL HX OF MAL MARILEE OF LARGE INTESTINE R10.31 RIGHT LOWER QUAD RANT PAIN Z85.038 PERSONAL HISTORY OF MALIGNANT NEOPLASM OF LARGE INTE Z90.49 ACQUIRED ABSENCE OF O THER SPECIFIED PARTS OF DIGESTIV COMPARISON: CT abdomen pelvis 02/20/2017, 04/15/2016 TECHNIQUE: CT scan of the abdomen and pelvis performed using helical scanning technique with dynamic intravenous contrast injection. Patient drank oral contrast. Images reviewed with lung, soft tissue , and bone windows. Reconstructed coronal and sagittal MPR images reviewed. Delayed images for evalua tion of the urinary system also acquired. All images stored on PACS. All CT scanners at this facility use dose modulation, iterative reconstruction, and/or weight based d osing when appropriate to reduce radiation dose to as low as reasonably achievable (ALARA). [facility]: Dose Right [facility]: CareDose [facility]: Dose Right [facility]: Teradose 4D [facility]: [employer] CONTRAST TYPE AND DOSE: contrast/concentration: Isovue 370.00 mg/ml; Total Contrast Delivered: 74.0 ml; Total Saline Delivered: 66.0 ml RENAL FUNCTION: Creatinine 0.8 RADIATION DOSE: CT Rad equipment meets quality standard of care and radiation dose reduction techniq ues were employed. CTDIvol: 4.7 - 5.5 mGy. DLP: 512 mGy-cm.. LIMITATIONS: None. FINDINGS: 14 cm AP x 14 cm transverse by 13 cm craniocaudad right adnexal cystic and solid mass is present worrisome for primary ovarian neoplasm. There is a small amount of fluid in the cul-de-sac p gricelda as well as along the right pericolic gutter and right/left subphrenic space. LOWER CHEST: Calcified and noncalcified granulomas at the lung bases LIVER: Normal size. No masses. No dilated ducts. SPLEEN: Normal size. No focal lesions. PANCREAS: No masses. No significant calcifications. No adjacent inflammation or peripancreatic fluid collections. Pancreatic duct not dilated. GALLBLADDER: No identified stones by CT criteria. No inflammatory changes to suggest cholecystitis. ADRENAL GLANDS: No significant masses or asymmetry. RIGHT KIDNEY AND URETER: No solid masses. No significant calcifications. No hydronephrosis or hyd roureter. LEFT KIDNEY AND URETER: No solid masses. No significant calcifications. No hydronephrosis or hydr oureter. AORTA AND VESSELS: No aneurysm. No dissection. Renal arteries, SMA, celiac without stenosis. RETROPERITONEUM: No retroperitoneal adenopathy, hemorrhage or masses. BOWEL AND PERITONEAL CAVITY: Patient drank oral contrast. Post right hemicolectomy. No bowel obstru ction. APPENDIX: Normal. PELVIS: Large mixed cystic and solid pelvic mass worrisome for primary ovarian tumor. Normal size ut erus. Left ovary not well seen. ABDOMINAL WALL: No masses. No hernias. BONES: No significant or acute findings. OTHER: No other significant finding. IMPRESSION: 14 x 14 x 13 cm complex cystic and solid mass in the right adnexa worrisome for primary ovarian tumor. There is a small amount of ascites present. TECHNICAL DOCUMENTATION: JOB ID: [id number] Quality ID # 436: Final reports with documentation of one or more dose reduction techniques (e.g., Au tomated exposure control, adjustment of the mA and/or kV according to patient size, use of iterative reconstruction technique) 2010 [employer]- All Rights Reserved Reading location - IP/workstation name: [facility]
== END ==
LOC: RAD 07:37
PROVIDERS: ATTEND Surgery
DX: R10.31 Right lower quadrant pain (principal); R19.03 Right lower quadrant abdominal swelling, mass and lump; R11.0 Nausea
CPT/HCPCS: 74177; 82565

== ENCOUNTER → 2017-10-02 | Outpatient (CLI) | payer MEDICAID ==
--- NOTE | 2017-10-02 09:09 | RADIOLOGY REPORT (SQ) ---
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 Images reviewed with lung, soft tissue and bone windows. Reconstructed coronal and sagittal MPR images reviewed. All images stored on PACS. All CT scanners at this facility use dose modulation, iterative reconstruction, and/or weight based d osing when appropriate to reduce radiation dose to as low as reasonably achievable (ALARA). [facility]: Dose Right [facility]: CareDose [facility]: Dose Right [facility]: Teradose 4D [facility]: [employer] CONTRAST TYPE AND DOSE: 80 ml Isovue 370 RENAL FUNCTION: Creatinine -0.8 BUN=17 RADIATION DOSE: CT Rad equipment meets quality standard of care and radiation dose reduction techniq ues were employed. CTDIvol: 4.2 mGy. DLP: 168 mGy-cm. . LIMITATIONS: None. FINDINGS: LUNGS AND PLEURA: Multiple, innumerable stable subcentimeter nodules in the lungs, many o f which are calcified. There are also a few small stable ground-glass nodules present. Stable pleur al based opacity in the left lingula superior and adjacent to the fissure, axial image 93, series 4, may be on the basis of atelectasis or scar. A few stable appearing paraseptal blebs/bullae. No acute pulmonary consolidation. No pneumothorax o r pleural effusion. The central airways are clear. HILAR AND MEDIASTINAL STRUCTURES: Stable borderline to mildly prominent mediastinal lymph nodes a fe w of which contain calcifications. Calcified stable appearing hilar lymph nodes also noted. HEART AND VASCULAR STRUCTURES: Stable mild dilatation of the ascending thoracic aorta which measures 3.5-3.6 cm at the level of the main pulmonary artery. No central pulmonary emboli. No pericardial effusion. HARDWARE: Right Nvbmzy-R-Ijuh catheter, stable finding. UPPER ABDOMEN: Small hypoattenuated left renal lesion. Limited exam. THYROID AND OTHER SOFT TISSUES: No masses. No adenopathy. BONES: The osseous structures are stable in appearance. OTHER: No other significant finding. IMPRESSION: 1 No significant interval changes since the prior examination dated 02/20/2017. There a re stable, multiple, innumerable calcified and noncalcified subpleural pulmonary nodules. Stable ple ural based opacity in the left lingula, may represent atelectasis or scar. 2. Stable borderline and mildly prominent mediastinal and hilar lymph nodes, some of which contain c alcifications. 3. Additional stable findings as above. TECHNICAL DOCUMENTATION: JOB ID: [id number] Quality ID # 436: Final reports with documentation of one or more dose reduction techniques (e.g., Au tomated exposure control, adjustment of the mA and/or kV according to patient size, use of iterative reconstruction technique) 2010 [employer]- All Rights Reserved Reading location - IP/workstation name: [email or web address]
== END ==
LOC: RAD 08:22
PROVIDERS: ATTEND Internal Medicine Hematology & Oncology
DX: C18.2 Malignant neoplasm of ascending colon (principal); C79.62 Secondary malignant neoplasm of left ovary
CPT/HCPCS: 71260

== ENCOUNTER → 2017-12-18 | Outpatient (CLI) | payer MEDICAID ==
--- NOTE | 2017-12-18 12:06 | RADIOLOGY REPORT (SQ) ---
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 Images reviewed with lung, soft tissue and bone windows. Reconstructed coronal a nd sagittal MPR images reviewed. All images stored on PACS. CT scan of the abdomen and pelvis performed with intravenous and with oral contrastusing helical scan jonny technique with dynamic intravenous contrast injection. Images reviewed with lung, soft tissue a nd bone windows. Reconstructed coronal and sagittal MPR images reviewed. Delayed images for evaluat ion of the urinary system also acquired and evaluated. All images stored on PACS. All CT scanners at this facility use dose modulation, iterative reconstruction, and/or weight based d osing when appropriate to reduce radiation dose to as low as reasonably achievable (ALARA). [facility]: Dose Right [facility]: CareDose [facility]: Dose Right [facility]: Teradose 4D [facility]: [employer] RADIATION DOSE: CT Rad equipment meets quality standard of care and radiation dose reduction techniq ues were employed. CTDIvol: 6.1 - 8.2 mGy. DLP: 903 mGy-cm. . LIMITATIONS: None. FINDINGS: CHEST: LUNGS AND PLEURA: Multiple stable pulmonary nodules throughout. Some are calcified. Bullous emphyse ma. No suspicious lesions. HILAR AND MEDIASTINAL STRUCTURES: No identified masses or abnormal nodes. HEART AND VASCULAR STRUCTURES: No aneurysm or dissection. No central pulmonary emboli. No pericardi al effusion. HARDWARE: None. THYROID AND OTHER SOFT TISSUES: No masses. No adenopathy. BONES: No significant finding. OTHER: No other significant finding. ABDOMEN AND PELVIS: LIVER: Normal size. No masses. No dilated ducts. SPLEEN: Normal size. No focal lesions. PANCREAS: No masses. No significant calcifications. No adjacent inflammation or peripancreatic fluid collections. Pancreatic duct not dilated. GALLBLADDER: Surgically absent. ADRENAL GLANDS: No significant masses or asymmetry. RIGHT KIDNEY AND URETER: No solid masses. No significant calcification. No hydronephrosis or hydroure ter. LEFT KIDNEY AND URETER: No solid masses. No significant calcification. No hydronephrosis or hydrouret er. AORTA AND VESSELS: No aneurysm. No dissection. Renal arteries, SMA, celiac without stenosis. RETROPERITONEUM: No retroperitoneal adenopathy, hemorrhage or masses. BOWEL AND PERITONEAL CAVITY: No masses or inflammatory changes. No free fluid or peritoneal masses. APPENDIX: Surgically absent. ABDOMINAL WALL: No masses. No hernias. PELVIS: Large adnexal mass is surgically absent. No nodes or suspicious findings in the pelvis. BONES: No significant or acute findings. OTHER: No other significant finding. IMPRESSION: Multiple stable pulmonary nodules having benign appearance likely granulomata. No suspi cious findings. Large mass arising from the pelvis is no longer present. No metastatic lesions. TECHNICAL DOCUMENTATION: JOB ID: [id number] Quality ID # 436: Final reports with documentation of one or more dose reduction techniques (e.g., Au tomated exposure control, adjustment of the mA and/or kV according to patient size, use of iterative reconstruction technique) 2010 [employer]- All Rights Reserved Reading location - IP/workstation name: [email or web address]
== END ==
LOC: RAD 10:30
PROVIDERS: ATTEND Internal Medicine Hematology & Oncology
DX: C18.2 Malignant neoplasm of ascending colon (principal); R91.8 Other nonspecific abnormal finding of lung field; J43.9 Emphysema, unspecified
CPT/HCPCS: 71260; 74177; 82565

== ENCOUNTER → 2018-04-23 | Outpatient (CLI) | payer MEDICAID ==
--- NOTE | 2018-04-23 09:48 | RADIOLOGY REPORT (SQ) ---
EXAM DESCRIPTION: CT CHEST WITH; CT ABD/PELVIS WITH IV ORAL COMPLETED DATE/TIME: 04/23/2018 9:17 am REASON FOR STUDY: C18.2 MALIGNANT NEOPLASM OF ASCENDING COLON C18.2 MALIGNANT NEOPLASM OF ASCENDING COLON COMPARISON: CT abdomen pelvis 04/15/2016 CT chest abdomen and pelvis 02/20/2017, 12/18/2017 CONTRAST TYPE AND DOSE: contrast/concentration: Isovue 350.00 mg/ml; Total Contrast Delivered: 75.0 ml; Total Saline Delivered: 67.0 ml RENAL FUNCTION: Creatinine 0.8 TECHNIQUE: CT scan of the chest performed using helical scanning technique with dynamic intravenous contrast injection. Images reviewed with lung, soft tissue and bone windows. Reconstructed coronal a nd sagittal MPR images reviewed. All images stored on PACS. CT scan of the abdomen and pelvis performed with intravenous and with oral contrastusing helical scan jonny technique with dynamic intravenous contrast injection. Images reviewed with lung, soft tissue a nd bone windows. Reconstructed coronal and sagittal MPR images reviewed. Delayed images for evaluat ion of the urinary system also acquired and evaluated. All images stored on PACS. All CT scanners at this facility use dose modulation, iterative reconstruction, and/or weight based d osing when appropriate to reduce radiation dose to as low as reasonably achievable (ALARA). [facility]: Dose Right [facility]: CareDose [facility]: Dose Right [facility]: Teradose 4D [facility]: [email or web address] RADIATION DOSE: CT Rad equipment meets quality standard of care and radiation dose reduction techniq ues were employed. CTDIvol: 4.7 - 5.2 mGy. DLP: 724 mGy-cm. . LIMITATIONS: None. FINDINGS: CHEST: LUNGS AND PLEURA: Benign calcified granulomas in the lungs. No worrisome pulmonary nodules. No acut e infiltrates. No pleural effusion. No pneumothorax. HILAR AND MEDIASTINAL STRUCTURES: No identified masses or abnormal nodes. HEART AND VASCULAR STRUCTURES: No aneurysm or dissection. No central pulmonary emboli. No pericardi al effusion. HARDWARE: Right permanent central line tip superior vena cava THYROID AND OTHER SOFT TISSUES: No masses. No adenopathy. BONES: No significant finding. OTHER: No other significant finding. ABDOMEN AND PELVIS: LIVER: Normal size. No masses. No dilated ducts. SPLEEN: Normal size. No focal lesions. PANCREAS: No masses. No significant calcifications. No adjacent inflammation or peripancreatic fluid collections. Pancreatic duct not dilated. GALLBLADDER: Surgically absent ADRENAL GLANDS: No significant masses or asymmetry. RIGHT KIDNEY AND URETER: No solid masses. No significant calcification. No hydronephrosis or hydroure ter. LEFT KIDNEY AND URETER: No solid masses. No significant calcification. No hydronephrosis or hydrouret er. AORTA AND VESSELS: No aneurysm. No dissection. Renal arteries, SMA, celiac without stenosis. RETROPERITONEUM: No retroperitoneal adenopathy, hemorrhage or masses. BOWEL AND PERITONEAL CAVITY: Patient drank oral contrast. Post right hemicolectomy. No CT evidence of bowel obstruction or free intraperitoneal air or fluid. APPENDIX: Normal. ABDOMINAL WALL: No masses. No hernias. PELVIS: No mass or free fluid. Normal bladder. BONES: No significant or acute findings. OTHER: No other significant finding. IMPRESSION: No CT evidence of metastatic disease to the chest abdomen or pelvis. Old right hemicolectomy and post cholecystectomy TECHNICAL DOCUMENTATION: JOB ID: [id number] Quality ID # 436: Final reports with documentation of one or more dose reduction techniques (e.g., Au tomated exposure control, adjustment of the mA and/or kV according to patient size, use of iterative reconstruction technique) 2010 [employer]- All Rights Reserved Reading location - IP/workstation name: [facility]
--- NOTE | 2018-04-23 09:48 | RADIOLOGY REPORT (SQ) ---
EXAM DESCRIPTION: CT CHEST WITH; CT ABD/PELVIS WITH IV ORAL COMPLETED DATE/TIME: 04/23/2018 9:17 am REASON FOR STUDY: C18.2 MALIGNANT NEOPLASM OF ASCENDING COLON C18.2 MALIGNANT NEOPLASM OF ASCENDING COLON COMPARISON: CT abdomen pelvis 04/15/2016 CT chest abdomen and pelvis 02/20/2017, 12/18/2017 CONTRAST TYPE AND DOSE: contrast/concentration: Isovue 350.00 mg/ml; Total Contrast Delivered: 75.0 ml; Total Saline Delivered: 67.0 ml RENAL FUNCTION: Creatinine 0.8 TECHNIQUE: CT scan of the chest performed using helical scanning technique with dynamic intravenous contrast injection. Images reviewed with lung, soft tissue and bone windows. Reconstructed coronal a nd sagittal MPR images reviewed. All images stored on PACS. CT scan of the abdomen and pelvis performed with intravenous and with oral contrastusing helical scan jonny technique with dynamic intravenous contrast injection. Images reviewed with lung, soft tissue a nd bone windows. Reconstructed coronal and sagittal MPR images reviewed. Delayed images for evaluat ion of the urinary system also acquired and evaluated. All images stored on PACS. All CT scanners at this facility use dose modulation, iterative reconstruction, and/or weight based d osing when appropriate to reduce radiation dose to as low as reasonably achievable (ALARA). [facility]: Dose Right [facility]: CareDose [facility]: Dose Right [facility]: Teradose 4D [facility]: [employer] RADIATION DOSE: CT Rad equipment meets quality standard of care and radiation dose reduction techniq ues were employed. CTDIvol: 4.7 - 5.2 mGy. DLP: 724 mGy-cm. . LIMITATIONS: None. FINDINGS: CHEST: LUNGS AND PLEURA: Benign calcified granulomas in the lungs. No worrisome pulmonary nodules. No acut e infiltrates. No pleural effusion. No pneumothorax. HILAR AND MEDIASTINAL STRUCTURES: No identified masses or abnormal nodes. HEART AND VASCULAR STRUCTURES: No aneurysm or dissection. No central pulmonary emboli. No pericardi al effusion. HARDWARE: Right permanent central line tip superior vena cava THYROID AND OTHER SOFT TISSUES: No masses. No adenopathy. BONES: No significant finding. OTHER: No other significant finding. ABDOMEN AND PELVIS: LIVER: Normal size. No masses. No dilated ducts. SPLEEN: Normal size. No focal lesions. PANCREAS: No masses. No significant calcifications. No adjacent inflammation or peripancreatic fluid collections. Pancreatic duct not dilated. GALLBLADDER: Surgically absent ADRENAL GLANDS: No significant masses or asymmetry. RIGHT KIDNEY AND URETER: No solid masses. No significant calcification. No hydronephrosis or hydroure ter. LEFT KIDNEY AND URETER: No solid masses. No significant calcification. No hydronephrosis or hydrouret er. AORTA AND VESSELS: No aneurysm. No dissection. Renal arteries, SMA, celiac without stenosis. RETROPERITONEUM: No retroperitoneal adenopathy, hemorrhage or masses. BOWEL AND PERITONEAL CAVITY: Patient drank oral contrast. Post right hemicolectomy. No CT evidence of bowel obstruction or free intraperitoneal air or fluid. APPENDIX: Normal. ABDOMINAL WALL: No masses. No hernias. PELVIS: No mass or free fluid. Normal bladder. BONES: No significant or acute findings. OTHER: No other significant finding. IMPRESSION: No CT evidence of metastatic disease to the chest abdomen or pelvis. Old right hemicolectomy and post cholecystectomy TECHNICAL DOCUMENTATION: JOB ID: [id number] Quality ID # 436: Final reports with documentation of one or more dose reduction techniques (e.g., Au tomated exposure control, adjustment of the mA and/or kV according to patient size, use of iterative reconstruction technique) 2010 [employer]- All Rights Reserved Reading location - IP/workstation name: [facility]
== END ==
LOC: RAD 08:41
PROVIDERS: ATTEND Internal Medicine Hematology & Oncology
DX: C18.2 Malignant neoplasm of ascending colon (principal)
CPT/HCPCS: 71260; 74177; 82565

== ENCOUNTER → 2018-07-15 | Outpatient (CLI) | payer MEDICAID ==
--- NOTE | 2018-07-16 10:43 | RADIOLOGY REPORT (SQ) ---
EXAM DESCRIPTION: PET CT SKULL/THIGH COMPLETED DATE/TIME: 07/15/2018 9:24 pm REASON FOR STUDY: COLON CANCER AND NEW RENAL MASS Z85.038 PERSONAL HISTORY OF MALIGNANT NEOPLASM OF LARGE INTE N28.89 OTHER SPECIFIED DISORDERS OF KIDNEY AND URETER COMPARISON: CT scans of the chest, abdomen, and pelvis dated 04/23/2018, 12/18/2017, 10/02/2017, and 07/03. There is a report of a CT scan of the chest, abdomen, and pelvis from an outside facility [facility] 06/29/2018. RADIONUCLIDE AND DOSE: 10 mCi F18 FDG The route of agent administration: Intravenous FASTING BLOOD SUGAR: 96 mg/dl CONTRAST TYPE AND DOSE: No CT contrast given. TECHNIQUE: Blood glucose level was verified. Above dose of FDG was injected intravenously. 2-D seg mented attenuation correction images were obtained from the base of the skull to the midthighs. Nonc ontrast CT images were obtained for attenuation correction and fusion with emission images. CT image s were performed without oral or intravenous contrast and are not sensitive for parenchymal lesions. A series of overlapping emission PET images were obtained. Images reviewed and manipulated at [facility] work station by the radiologist. Images stored on PACS. LIMITATIONS: None. FINDINGS: HEAD AND NECK: No areas of abnormal metabolic activity in the soft tissues of the head and neck. CHEST: No areas of abnormal metabolic activity in the chest. ABDOMEN AND PELVIS: There is a right-sided percutaneous nephrostomy tube. There is indistinct soft t issue located just medial to the lower pole of the right kidney, measuring approximately 1.2 cm (seri es 3, image 148). No associated increased metabolic activity, mean SUV value 1.45. Stable surgical changes in the abdomen and pelvis. No areas of abnormal metabolic activity in the abdomen or pelvis. Expected physiologic activity is present in the genitourinary system and bowel. PROXIMAL LOWER EXTREMITIES: No areas of abnormal metabolic activity in the soft tissues of the lower extremities. BONES: No abnormal metabolic activity in the visualized skeleton. ADDITIONAL CT FINDINGS: Vascular port in the chest. Multiple calcified granulomas throughout the erin gs, unchanged. Calcified hilar and mediastinal lymph nodes. Punctate calcified granulomas in the sp shaina. No additional significant findings on the noncontrast CT images. OTHER: Background blood pool activity mean SUV 1.94. Background liver activity mean SUV 2.56. No ot her significant findings. IMPRESSION: SINCE THE PRIOR STUDY IN APRIL 2018 THE PATIENT HAS UNDERGONE PLACEMENT OF A RIGHT EDUARDO E PERCUTANEOUS NEPHROSTOMY TUBE. THERE IS INDISTINCT SOFT TISSUE LOCATED JUST MEDIAL TO THE LOWER PO LE OF THE RIGHT KIDNEY WITH NO ABNORMAL METABOLIC ACTIVITY. THIS PRESUMABLY REPRESENTS THE FINDING O N RECENT CT FROM AN OUTSIDE FACILITY. NO OTHER ABNORMAL FINDINGS ON CT SCAN, OTHER THAN STABLE SURGI DEVONTE CHANGES AND PRIOR GRANULOMATOUS DISEASE. NO HYPERMETABOLIC FINDINGS ON PET SCAN. TECHNICAL DOCUMENTATION: JOB ID: [id number] [employer]- All Rights Reserved Reading location - IP/workstation name: [email or web address]
== END ==
LOC: RAD 17:30
PROVIDERS: ATTEND Internal Medicine Hematology & Oncology
DX: C18.9 Malignant neoplasm of colon, unspecified (principal); N28.89 Other specified disorders of kidney and ureter
CPT/HCPCS: 78815; A9552

== ENCOUNTER 2018-09-05 11:05 | Day surgery (SDC) | payer MEDICAID ==
[2018-08-31 12:57] LABS: HEMATOCRIT 38.7 % (36.0-47.0); HEMOGLOBIN 13.1 g/dL (12.0-15.5); MEAN CORPUSCULAR HEMOGLOBIN 30.3 pg (27.0-33.4); MEAN CORPUSCULAR HGB CONC 33.7 g/dL (32.0-36.0); MEAN CORPUSCULAR VOLUME 90 fl (80-97); PLATELET COUNT 202 10^3/uL (150-450); RED BLOOD COUNT 4.31 10^6/uL (3.72-5.28); WHITE BLOOD COUNT 7.6 10^3/uL (4.0-10.5)
[~2018-09-05 11:05] MED LIST changes: +ACETAMINOPHEN 325 MG TABLET PO PRN; -CONTAINER EMPTY IV PRN; -DEXTROSE 5% IV PRN; -DEXTROSE 5%-WATER 250 ML IV PRN; -DISPOSABLE IV PRN; -FLUOROURACIL IV PRN; +LACTATED RINGERS 1000 ML IV PRN; -LEUCOVORIN CALCIUM IV PRN; +LIDOCAINE 0.5% INJ-PF (5 MG/ML) 50 ML SDV SUBCUT PRN; -NORMAL SALINE 10 ML SDV (AFTER EACH USE) IV PRN; -ONDANSETRON HCL/PF 16 MG, DEXAMETHASONE SOD PHOSPHATE 10 MG in NORMAL SALINE 50 ML IV PRN; -OXALIPLATIN IV PRN; +PROPOFOL INJ 200 MG/20 ML VIAL IV ONE; -WATER IV PRN
[2018-09-05] MEDS ORDERED: ONDANSETRON HCL INJ/PF 4 MG/2 ML SDV ONE (13:33)
[2018-09-05] MEDS ORDERED: PROMETHAZINE HCL INJ 25 MG/1 ML VIAL ONE (13:33)
[2018-09-05] MEDS ORDERED: MEPERIDINE HCL/PF INJ 25 MG/1 ML DISP.SYRIN IV PRN (13:48)
[2018-09-05] MEDS ORDERED: DIPHENHYDRAMINE HCL 50 MG/ML VIAL IV PRN (13:48)
[2018-09-05] MEDS ORDERED: FENTANYL CITRATE INJ/PF 100 MCG/2 ML AMPUL IV PRN ×3 (13:48)
--- NOTE | 2018-09-05 14:22 | Discharge Summary ---
Discharge Summary (SDC) - Discharge Final Diagnosis: 1. History of metastatic colon cancer 2. Normal surveillance colonoscopy Date of Surgery: 09/05/18 Discharge Date: 09/05/18 Condition: Good Forms: ASU Anesthesia D/C Instruction, Discharge POC-Surgical Service Referrals: EDYTA BONILLA MD [ACTIVE STAFF] - 09/14/18 2:45 pm Discharge Diet: As Tolerated Discharge Activity: Activity As Tolerated Home Care Assistance: None Needed Report the Following to Your Physician Immediately: Shortness of Breath, Increase in Pain, Fever over 101 Degrees
--- NOTE | 2018-09-05 14:25 | Operative Report ---
Operative Report DATE OF SURGERY: 09/05/18 PREOPERATIVE DIAGNOSIS: History of metastatic colon carcinoma; chronic abdomin al pain POSTOPERATIVE DIAGNOSIS: Normal colonoscopy to ileotransverse colon anastomosis OPERATION: 1. Colonoscopy to ileotransverse colon anastomosis. 2. Photodocumentation SURGEON: EDYTA BONILLA ANESTHESIA: LMAC TISSUE REMOVED OR ALTERED: None COMPLICATIONS: None ESTIMATED BLOOD LOSS: None INTRAOPERATIVE FINDINGS: See below PROCEDURE: Obtaining informed consent the patient was taken from the preoperative holding area to the main endoscopy suite where monitoring devices were attached to the patient. Plan and surgical timeout were conducted The patient was placed in the left lateral decubitus position with knees to chest. Appropriate level of LMAC anesthesia was induced; A perianal examination was performed. There was no visible or palpable anorectal pathology. Mild external hemorrhoids identified. Sphincter tone was felt to be normal. The flexible adult colonoscope was advanced through the anal rectal canal, all the way to the photos were taken. This was a reasonably well-prepped bowel with a moderate amount of residual yellow stool suctioned out easily. There was no evidence of tumor recurrence. The scope was withdrawn the length of the colon checked the mucosa carefully. There was no evidence of tumor, stricture, bleeding or polyp. There was no evidence of diverticuloses. The scope was slowly withdrawn through the anal rectal canal. Complete visualization of the rectum was achieved with photodocumentation. The scope was withdrawn to the patient's anus. The patient tolerated the procedure well and was taken to the recovery area in stable condition. Patient be appropriate candidate for follow-up colonoscopy in 3 years, or sooner if symptoms develop.
[2018-09-05 15:37] VITALS: BP 124/66
== END 2018-09-05 15:33 | disposition home or self-care (01) ==
LOC: OROUT 11:05
PROVIDERS: ATTEND Surgery
DX: R10.9 Unspecified abdominal pain (principal); K64.8 Other hemorrhoids; Z85.038 Personal history of other malignant neoplasm of large intestine; R97.0 Elevated carcinoembryonic antigen [CEA]; D50.9 Iron deficiency anemia, unspecified; Z86.19 Personal history of other infectious and parasitic diseases; Z79.899 Other long term (current) drug therapy
CPT/HCPCS: 45378; 36415; 85027; 00812; J2550; J2405; J2704; 812